=== PATIENT | male | born 1995 | race Caucasian/White ===

== ENCOUNTER → 2017-03-09 | Outpatient (CLI) | payer BC ==
[~2017-03-09] MED LIST: LORTAB 500 MG-71 TAB PO; NOMEDS; ZOFRAN4 MG PO
--- NOTE | 2017-03-09 18:01 | RADIOLOGY REPORT PS360 ---
HAND-LT-3 VIEWS HISTORY: Pain following injury INJURY TO MIDDLE LEFT FINGER ORDERING PHYSICIAN: Juhi Clifton APRN PATIENT AGE: 21 years COMPARISON: None FINDINGS: No fracture or dislocation. No lytic or blastic change. There is normal mineralization. The joint spaces are well-preserved. No significant degenerative/arthritic changes. No erosive changes evident. IMPRESSION: Negative, no acute finding
== END ==
LOC: RAD 17:27
DX: S69.92XA Unspecified injury of left wrist, hand and finger(s), initial encounter (principal)